=== PATIENT | male | born 1975 | race Caucasian/White ===

== ENCOUNTER 2017-11-19 10:47 | Observation (INO) ==
--- NOTE | 2017-11-19 11:06 | Emergency Department Report ---
Overdose HPI - General Chief Complaint: Overdose Stated Complaint: MEDICATION OVERDOSE Time Seen by Provider: 11/19/17 11:06 Source: patient, EMS Mode of arrival: EMS Limitations: no limitations - History of Present Illness HPI Narrative: Patient is a 42-year-old male presents to the emergency department for possible benzodiazepine overdose. Patient apparently was transferred to [facility] on 11/13/2017 with a history of possible stroke. As far as can be determined for the discharge paperwork stroke was ruled out patient was referred to [facility] for alcohol and methamphetamine abuse. Patient was approximately 12:30 AM discharge from [facility] in [facility] sometime around 8:30 this morning was discharged with 61 mg lorazepam is a ride with 29 1 mg lorazepam's, slurring his speech and somnolent. EMS was called patient was brought to the ER for evaluation on arrival patient states he's been taking it for his anxiety took either 9 or 13 approximately an hour and half prior to EMS being called. MD complaint: accidental overdose - Related Data Home Medications Medication Instructions Recorded Confirmed LORazepam [Lorazepam] 1 mg PO TID PRN 11/19/17 11/19/17 Allergies Allergy/AdvReac Type Severity Reaction Status Date / Time No Known Allergies Allergy Verified 11/19/17 11:05 Review of Systems Constitutional: Denies: fever, chills, weakness Eyes: Denies: eye pain, eye discharge, vision change ENT: Denies: ear pain, throat pain, dental pain Cardiovascular: Denies: chest pain, palpitations, dyspnea on exertion Respiratory: Denies: cough, dyspnea, wheezes Gastrointestinal: Denies: abdominal pain, nausea, vomiting Genitourinary: Denies: dysuria, frequency Integumentary: Denies: alopecia Neurological: Denies: headache Psychiatric: Reports: anxiety, depression Endocrine: Denies: fatigue Hematological/Lymphatic: Denies: easy bleeding Allergic/Immunologic: Denies: facial swelling PFSH Patient Stated Medical History 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 Absent: tenderness - Chest Chest inspection: Present: symmetric chest wall rise. Absent: tenderness - Respiratory Respiratory exam: Present: normal lung sounds bilaterally. Absent: respiratory distress, wheezes, stridor - Cardiovascular Cardiovascular exam: Present: regular rate, normal rhythm, normal heart sounds - Abdominal Exam Abdominal exam: Present: soft, normal bowel sounds. Absent: distention, tenderness - Extremities Exam Extremities exam: Present: full ROM, normal capillary refill. Absent: tenderness - Back Exam Back exam: Present: full ROM. Absent: tenderness, CVA tenderness (R), CVA tenderness (L), muscle spasm, paraspinal tenderness - Skin Skin exam: Present: warm, dry - Neurological Exam Neurological exam: Present: alert, oriented X3 - Psychiatric Psychiatric exam: Present: other (patient is somnolent but arousable and answers questions appropriately) Course Vital Signs Pulse Rate 88 11/19/17 10:52 Respiratory Rate 16 11/19/17 10:52 Blood Pressure 126/72 11/19/17 10:52 Pulse Oximetry 98 11/19/17 10:52 Pulse Rate 68 11/19/17 12:58 Respiratory Rate 23 11/19/17 12:57 Blood Pressure 120/77 11/19/17 12:57 Pulse Oximetry 98 11/19/17 12:45 Overdose - Medical Records Attestation: I reviewed the patient's medical records. - Lab Data Attestation: I reviewed the patient's lab results. Result diagrams: 11/19/17 11:28 11/19/17 11:28 Lab Results 11/19/17 11/19/17 11/19/17 Range/Units 11:25 11:25 11:28 WBC (4.5-11.0) T/MM3 RBC (4.50-5.90) M/MM3 Hgb (13.5-17.5) GM/DL Hct (41-53) % MCV (80-100) UM3 MCH (26-34) UUG MCHC (31-37) GM/DL RDW Std Deviation (36.9-50.2) FL Plt Count (130-400) T/MM3 MPV (9.4-12.4) UM3 Immature Gran % (Auto) (0.0-0.5) % Neut % (Auto) (33-66) % Lymph % (Auto) (23-45) % [place] % (Auto) (0-9.0) % Eos % (Auto) (0-4) % Baso % (Auto) (0-2) % Neut # (Auto) (1.8-7.7) T/MM3 Lymph # (Auto) (1-4.8) T/MM3 [place] # (Auto) (0-0.8) T/MM3 Eos # (Auto) (0-0.5) T/MM3 Baso # (Auto) (0-0.2) T/MM3 Abs Immat Gran (auto) (0.00-0.03) T/MM3 Turbidity (0-20) Sodium (136-146) MEQ/L Potassium (3.6-5) MEQ/L Chloride (98-107) MEQ/L Carbon Dioxide (22-30) MEQ/L Anion Gap (5-15) meq/L BUN (9-20) MG/DL Creatinine (0.8-1.5) mg/dL Estimated Creat Clear (>50) mL/min GFR Calculation (>60) mL/min BUN/Creatinine Ratio (6-26) RATIO Glucose (75-110) MG/DL Calculated Osmolality (261-280) MOSM/KG Calcium (8.4-10.2) MG/DL Total Bilirubin (0.20-1.30) MG/DL Icterus Index (0-7) AST (17-59) U/L ALT (1-50) U/L Alkaline Phosphatase (38-126) U/L Total Protein (6.3-8.2) g/dL Albumin (3.5-5.0) g/dL Globulin (2.4-3.6) G/DL Albumin/Globulin Ratio (1.1-2.2) RATIO Specimen Hemolysis (0-25) Ur Collection Type Urine, void-cc/notcc Urine Color Yellow (YELLOW) Urine Clarity Clear Urine pH 8.0 (5.0-8.0) Ur Specific [place] 1.010 L (1.015-1.025) Urine Protein Negative (NEGATIVE) Urine Glucose (UA) Negative (NEGATIVE) Urine Ketones Negative (NEGATIVE) Urine Occult Blood Negative (NEGATIVE) Urine Nitrate Negative (NEGATIVE) Urine Bilirubin Negative (NEGATIVE) Urine Urobilinogen 0.2 (NORMAL) EU/DL Ur Leukocyte Esterase Negative (NEGATIVE) Urinalysis Comment Microscopic not ind. Salicylates (2-20) MG/DL Urine Opiates Screen Negative (Negative) ng/mL Ur Oxycodone Screen Negative (Negative) ng/mL Urine Methadone Screen Negative (Negative) ng/mL Ur Propoxyphene Screen Negative (Negative) ng/mL Acetaminophen (10-30) ug/mL Ur Barbiturates Screen Negative (Negative) ng/mL U Tricyclic Antidepress Negative (Negative) ng/mL Ur Phencyclidine Scrn Negative (Negative) ng/mL Ur Amphetamines Screen Negative (Negative) ng/mL U Methamphetamines Scrn Negative (Negative) ng/mL U Benzodiazepines Scrn Positive (Negative) ng/mL Urine Cocaine Screen Negative (Negative) ng/mL U Cannabinoids Screen Negative (Negative) ng/mL Ur Drug Screen Confirm Sent out Alcohol, Quantitative (<10) mg/dL 11/19/17 11/19/17 Range/Units 11:28 11:28 WBC 5.0 (4.5-11.0) T/MM3 RBC 4.55 (4.50-5.90) M/MM3 Hgb 13.4 L (13.5-17.5) GM/DL Hct 40.5 L (41-53) % MCV 89.0 (80-100) UM3 MCH 29.5 (26-34) UUG MCHC 33.1 (31-37) GM/DL RDW Std Deviation 57.6 H (36.9-50.2) FL Plt Count 370 (130-400) T/MM3 MPV 8.6 L (9.4-12.4) UM3 Immature Gran % (Auto) 0.2 (0.0-0.5) % Neut % (Auto) 52.5 (33-66) % Lymph % (Auto) 33.5 (23-45) % [place] % (Auto) 13.0 H (0-9.0) % Eos % (Auto) 0.6 (0-4) % Baso % (Auto) 0.2 (0-2) % Neut # (Auto) 2.6 (1.8-7.7) T/MM3 Lymph # (Auto) 1.7 (1-4.8) T/MM3 [place] # (Auto) 0.7 (0-0.8) T/MM3 Eos # (Auto) 0.0 (0-0.5) T/MM3 Baso # (Auto) 0.0 (0-0.2) T/MM3 Abs Immat Gran (auto) 0.01 (0.00-0.03) T/MM3 Turbidity < 20 (0-20) Sodium 142 (136-146) MEQ/L Potassium 4.6 (3.6-5) MEQ/L Chloride 104 (98-107) MEQ/L Carbon Dioxide 28 (22-30) MEQ/L Anion Gap 10 (5-15) meq/L BUN 15.0 (9-20) MG/DL Creatinine 0.7 L (0.8-1.5) mg/dL Estimated Creat Clear 132 (>50) mL/min GFR Calculation 125 (>60) mL/min BUN/Creatinine Ratio 21 (6-26) RATIO Glucose 95 (75-110) MG/DL Calculated Osmolality 274 (261-280) MOSM/KG Calcium 9.6 (8.4-10.2) MG/DL Total Bilirubin 0.30 (0.20-1.30) MG/DL Icterus Index < 2 (0-7) AST 34 (17-59) U/L ALT 50 (1-50) U/L Alkaline Phosphatase 47 (38-126) U/L Total Protein 7.5 (6.3-8.2) g/dL Albumin 4.6 (3.5-5.0) g/dL Globulin 2.9 (2.4-3.6) G/DL Albumin/Globulin Ratio 1.6 (1.1-2.2) RATIO Specimen Hemolysis < 15 (0-25) Ur Collection Type Urine Color (YELLOW) Urine Clarity Urine pH (5.0-8.0) Ur Specific [place] (1.015-1.025) Urine Protein (NEGATIVE) Urine Glucose (UA) (NEGATIVE) Urine Ketones (NEGATIVE) Urine Occult Blood (NEGATIVE) Urine Nitrate (NEGATIVE) Urine Bilirubin (NEGATIVE) Urine Urobilinogen (NORMAL) EU/DL Ur Leukocyte Esterase (NEGATIVE) Urinalysis Comment Salicylates < 1.0 L (2-20) MG/DL Urine Opiates Screen (Negative) ng/mL Ur Oxycodone Screen (Negative) ng/mL Urine Methadone Screen (Negative) ng/mL Ur Propoxyphene Screen (Negative) ng/mL Acetaminophen < 10 L (10-30) ug/mL Ur Barbiturates Screen (Negative) ng/mL U Tricyclic Antidepress (Negative) ng/mL Ur Phencyclidine Scrn (Negative) ng/mL Ur Amphetamines Screen (Negative) ng/mL U Methamphetamines Scrn (Negative) ng/mL U Benzodiazepines Scrn (Negative) ng/mL Urine Cocaine Screen (Negative) ng/mL U Cannabinoids Screen (Negative) ng/mL Ur Drug Screen Confirm Alcohol, Quantitative <10 (<10) mg/dL - Radiology Data Attestation: I reviewed the patient's radiology results. Chest x-ray: No acute cardiopulmonary findings - EKG Data EKG #1 EKG attestation: Yes: I reviewed and interpreted this EKG. EKG shows normal: sinus rhythm Rate: normal Rhythm: NSR [place]/QRS: normal Interpretation: no acute changes Disposition Clinical Impression: Benzodiazepine overdose Qualifiers: Encounter type: initial encounter Injury intent: accidental or unintentional Qualified Code(s): T42.4X1A - Poisoning by benzodiazepines, accidental ( unintentional), initial encounter Disposition: 02 To [facility] Time of Disposition: 13:05 - Seen By: physician
[2017-11-19] MEDS ORDERED: NS 1,000 ML IV ONE (11:12)
[2017-11-19] MEDS ORDERED: SALINE FLUSH 10ml SYRINGE IVF PRN (11:12)
--- NOTE | 2017-11-19 11:50 | XRay Report ---
Indication: overdose PROCEDURE: XR chest 1V: Encounter: Initial Comparison: None FINDINGS: The lungs are clear. There is no abnormal airspace opacity, pleural effusion or pneumothorax identified. The heart size, pulmonary vasculature and mediastinum are within normal limits. No significant skeletal abnormality is seen. IMPRESSION: No acute cardiopulmonary abnormality. .
--- OUTSIDE RECORDS SUMMARY | 2017-11-19 12:55 | External Medical Summary ---
:1975 Author Organization [facility] Address [address] [place], [place] [id number] Care Team Providers Name Role Phone Zoran Darnell Primary Care Physician Unavailable Allergies and Adverse Reactions Name Reaction Notes No known drug allergy Plan of Treatment Planned Activity Comments Planned Date Planned Time Plan/Goal SHOULDER MINIMUM 2 VIEWS 06/02/2017 12:00 AM right shoulder pain with flexion and internal rotation Medications Active Name Start Date Estimated Completion SIG Comments Date diclofenac potassium 50 06/02/2017 take 1 tablet (50 mg oral tablet mg) by oral route 2 times per day for 14 days Problem List Not available. 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 Results Summary Not available. History Of Immunizations Not available. History of Past Illness Name Date of Onset Comments Fractures of multiple bones of lower extremity Right shoulder pain Jun 02 2017 1:06PM Payers Insurance Company Name Plan Name Plan Policy Number Policy Start Name Number Group Date Number [facility] [id number] N/A HealthCare - RHC Comm C - [facility] Plan of [place] History of Encounters Visit Date Visit Type Provider 06/02/2017 Office visit Zoran Darnell NP
--- OUTSIDE RECORDS SUMMARY | 2017-11-19 12:55 | External Medical Summary ---
:1975 Author Organization [facility] Address [address] [place], [place] [id number] Care Team Providers Name Role Phone Zoran Darnell Primary Care Physician Unavailable Allergies and Adverse Reactions Name Reaction Notes No known drug allergy Plan of Treatment Planned Activity Comments Planned Date Planned Time Plan/Goal CHLAMYDIA TRACHOMATIS AMP PROBE 10/13/2017 12:00 AM NEISSERIA GONORRHOEAE AMP PROBE 10/13/2017 12:00 AM TRICHOMONAS AMPLIFIED 10/13/2017 12:00 AM TRICHOMONAS AMPLIFIED 10/13/2017 12:00 AM right shoulder pain with flexion and 06/15/2017 10:00 AM internal rotation Medications Name Start Date Expiration Date SIG Comments diclofenac potassium 50 mg 06/02/2017 take 1 tablet (50 mg) oral tablet by oral route 2 times per day for 14 days Sklice 0.5 % topical 06/08/2017 apply to affected area lotion by topical route once Problem List Not available. 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 History Of Immunizations Not available. History of Past Illness Name Date of Onset Comments Fractures of multiple bones of lower extremity Right shoulder pain Jun 02 2017 1:06PM High risk sexual behavior Oct 13 2017 9:36AM Payers Insurance Company Name Plan Name Plan Policy Number Policy Start Name Number Group Date Number [facility] [id number] N/A HealthCare - RHC Comm [employer] - [employer] Plan of [place] History of Encounters Visit Date Visit Type Provider 10/13/2017 Office visit Zoran Darnell NP 06/02/2017 Office visit Zoran Darnell NP
--- OUTSIDE RECORDS SUMMARY | 2017-11-19 12:55 | External Medical Summary ---
:1975 Author Organization [facility] Address [address] [place], [place] [id number] Care Team Providers Name Role Phone Zoran Darnell Primary Care Physician Unavailable Allergies and Adverse Reactions Name Reaction Notes No known drug allergy Plan of Treatment Planned Activity Comments Planned Date Planned Time Plan/Goal right shoulder pain with flexion and 06/15/2017 10:00 AM internal rotation Medications Active Name Start Date Estimated Completion SIG Comments Date diclofenac potassium 50 06/02/2017 take 1 tablet (50 mg oral tablet mg) by oral route 2 times per day for 14 days Sklice 0.5 % topical 06/08/2017 apply to affected lotion area by topical route once Problem List Not [...] (former) 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
--- OUTSIDE RECORDS SUMMARY | 2017-11-19 12:55 | External Medical Summary | Continuity of Care Document ---
:1975 Author Organization [facility] Allergies Active Description Code Type Severity Reaction Onset Reported/ Identified Relationship Clinical to Patient Status Yes NKDA N/A N/A Yes No Known No Drug Unknown NONE 05/26/2010 Drug Known Aller Allergies Drug gy Aller gies Yes NKDA N/A N/A 03/21/2016 Yes No Known NKMA N/A N/A 07/10/2016 Allergies Medications Medication Packaging Start Date Stop Route Dosage Sig Date ORAL 03/12/2016 04/21/19 TRAMADOL HCL 17 MOBIC ORAL 03/12/2016 04/11/19 17 [facility] MOBIC ORAL 03/21/2016 04/20/19 30 17 daily ORAL 04/11/2016 04/21/19 TRAMADOL HCL 17 1,000 mL 07/10/2016 07/11/19 IV 10 Lactated Ringers 17 mL/hr, IV Injection(Lactate d Ringers Injection 1,000 mL) 2 mL 07/10/2016 07/11/19 IV Push 2 mg 2 midazolam(Versed) 17 mg=2 mL, IV Push, q20min, PRN: Sedation 2 mL 07/10/2016 07/11/19 IV Push 100 mcg 100 fentaNYL(Sublimaz 17 mcg=2 mL, IV e) Push, q20min, PRN: Pain 1 mL 07/10/2016 07/11/19 IV Push 10 mg 10 dexamethasone(dex 17 mg=1 mL, IV amethasone) Push, Once 2 caps 07/10/2016 07/11/19 Oral 600 mg 600 gabapentin(gabape 17 mg=2 caps, Oral, ntin) Once 3 tabs 07/10/2016 07/11/19 Oral 975 mg 975 acetaminophen(randy 17 mg=3 tabs, Oral, taminophen) Once 2 mL 07/10/2016 07/12/19 IV Push 10 mg 10 metoclopramide(Re 17 mg=2 mL, IV glan) Push, q6hr, PRN: Nausea 1 caps 07/10/2016 07/12/19 Oral 100 mg 100 docusate(Colace) 17 mg=1 caps, Oral, BID 2 mL 07/10/2016 07/12/19 IV Push 4 mg 4 ondansetron(Zofra 17 mg=2 mL, IV n) Push, q6hr, PRN: Nausea Al 30 mL 07/10/2016 07/12/19 Oral 30 hydroxide/Mg 17 mL, Oral, q6hr, hydroxide/simethi PRN: cone(Maalox GERD/Heartburn Advanced Maximum Strength oral suspension) 1.5 mL 07/10/2016 07/12/19 IV Push 3 mg 3 HYDROmorphone(HYD 17 mg=1.5 mL, IV ROmorphone) Push, q4hr, PRN: Pain Severe (7-10) 10 mL 07/10/2016 07/12/19 IV Push 1 g 1 ceFAZolin(ceFAZol 17 g=10 mL, IV in) Push, q8hr 07/10/2016 07/12/19 Oral 1--2 oxycodone-acetami 17 tabs, Oral, nophen(Percocet q4hr, PRN: Pain 5/325 oral tablet Moderate (4-6) range dose) 1 caps 07/10/2016 07/12/19 Oral 100 mg 100 docusate(Colace) 17 mg=1 caps, Oral, BID Al 30 mL 07/10/2016 07/12/19 Oral 30 hydroxide/Mg 17 mL, Oral, q6hr, hydroxide/simethi PRN: cone(Maalox Dyspepsia/Indige Advanced Maximum stion Strength oral suspension) 1 packets 07/10/2016 07/12/19 Oral 17 g 17 polyethylene 17 g=1 packets, glycol Oral, BID 3350(MiraLax) 1,000 mL 07/10/2016 07/12/19 IV 80 Sodium Chloride 17 mL/hr, IV 0.9%(Sodium Chloride 0.9% 1,000 mL) 1 supp 07/10/2016 07/12/19 Rectal 10 mg 10 bisacodyl(bisacod 17 mg=1 supp, yl) Rectal, Daily, PRN: Constipation 07/10/2016 Oral 1 - oxycodone-acetami 2 tabs, Oral, nophen(Percocet q4hr, PRN: Pain 5/325 oral Moderate (4-6), tablet) 0 Refill(s) 2 tabs 07/11/2016 07/12/19 Oral 2 oxycodone-acetami 17 tabs, Oral, nophen(oxyCODONE- q4hr, PRN: Pain acetaminophen 10 Moderate (4-6) mg-325 mg oral tablet range dose) VL 11/13/2017 11/14/19 IM 1 GM X1& MAGNESIUM SULF 18 1GM/2ML VIAL VIAL 11/13/2017 11/14/19 IVP 1 MG X1& LORAZEPAM 2MG/ML 18 VIAL Problems Date Dx Attending Type Code Diagnosis Diagnosed By Coded 10/27/2015 Sekou Daly MD E83.42 HYPOMAGNESEMIA R4 10/27/2015 Sekou Daly MD M25.572 PAIN IN LEFT ANKLE R4 AND JOINTS OF LEFT FOOT 10/27/2015 Sekou Daly MD R41.82 ALTERED MENTAL R4 STATUS, UNSPECIFIED 10/27/2015 Sekou Daly MD T40.601A POISONING BY UNSP R4 NARCOTICS, ACCIDENTAL, INIT 10/27/2015 Sekou Daly MD T45.0X1A POISONING BY R4 ANTIALLERG/ANTIEMETI C, ACCIDENTAL, IN 07/15/2016 Christine Shawn Final F17.220 Nicotine dependence, chewing tobacco, uncomplicated 07/15/2016 Christine Shawn Reason 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 Results Test Result Range CBC With Platelet and Differential - 07/11/16 06:35 Absolute Basophils 0.01 10*3/uL 0.00-0.20 Absolute Eosinophils 0.03 10*3/uL 0.00-0.50 Absolute Lymphocytes 2.24 10*3/uL 0.80-3.30 Absolute Monocytes 0.98 10*3/uL 0.30-1.00 Absolute Neutrophils 7.88 10*3/uL 1.90-7.00 Basophils 0 % 0-2 Eosinophils 0 % 0-4 HCT 39.0 % 42.0-52.0 HGB 12.5 g/dL 14.0-18.0 Immature Granulocytes 0.3 % 0.0-1.0 Lymphocytes 20 % 20-46 MCH 29.1 pg 27.0-32.0 MCHC 32.1 g/dL 32.0-36.0 MCV 90.9 fL 82.0-99.0 Monocytes 9 % 4-11 MPV 9.0 fL 9.4-12.3 Neutrophils 70 % 51-75 Nucleated RBC Automated 0.0 /100 WBC Platelet Count 355 K/uL 150-400 RBC 4.29 10*6/uL 4.60-6.20 RDW 14.6 % 11.5-14.5 WBC 11.2 K/uL 4.8-10.8 Basic Metabolic Panel (BMP) - 07/11/16 06:35 Anion Gap 9 NA 3-20 BUN 11 mg/dL 4-20 Calcium 8.7 mg/dL 8.6-10.0 Chloride 103 mEq/L 99-109 CO2 27 mEq/L 22-32 Creatinine 0.84 mg/dL 0.64-1.27 Glucose 99 mg/dL 70-100 Potassium 5.0 mEq/L 3.6-5.1 Sodium 139 mEq/L 136-144 eGFR - 07/11/16 06:35 eGFR >60 NA >60 CBC W Auto Diff Bld - 11/13/17 04:20 WBC 9.7 K/ul 4.5 - 11.0 RBC 4.86 M/ul 4.40 - 5.60 HGB 14.2 G/dl 13.0 - 17.0 HCT 40.6 % 38.0 - 50.0 MCV 84 fl 80 - 100 MCH 29.2 pg 28.0 - 32.0 MCHC 34.9 G/dl 32.0 - 36.7 RDW 19.0 % 11.5 - 15.5 PLATELETS 176 K/ul 120 - 390 MPV 7.8 fl 5.4 - 12.6 NEUTROPHIL% 64.2 % 43.5 - 76.5 LYMPHOCYTE% 24.6 % 13.5 - 44.5 MONOCYTE% 8.3 % 2.0 - 12.0 EOSINOPHIL% 2.5 % 0.0 - 5.0 BASOPHIL% 0.4 % 0.0 - 2.0 NEUTROPHIL# 6.2 K/ul 1.7 - 7.4 LYMPHOCYTE# 2.4 K/ul 0.9 - 3.3 MONOCYTE# 0.8 K/ul 0.1 - 0.8 EOSINOPHIL# 0.2 K/ul 0.0 - 0.5 BASOPHIL# 0.0 K/ul 0.0 - 0.1 MANUAL DIFF NOT INDICATED NRG Lactate SerPl-sCnc - 11/13/17 04:20 LACTIC ACID PLASMA 0.9 MMOL/L 0.5 - 2.2 PT Pnl PPP - 11/13/17 04:20 PROTIME 11.9 sec 9.5 - 12.1 INR 1.09 0.00 - 3.90 Comp Metab 2000 Pnl SerPl - 11/13/17 04:20 GLUCOSE 103 mg/dl 74 - 118 BUN 23.0 mg/dl 8.0 - 26.0 SODIUM 130 mmol/L 136 - 144 POTASSIUM 2.6 mmol/L 3.6 - 5.1 CHLORIDE 90 mmol/L 101 - 111 CO2 28 mmol/L 22 - 32 CREATININE 0.75 mg/dl 0.61 - 1.24 TOTAL PROTEIN 7.4 G/DL 6.5 - 8.1 ALBUMIN 4.0 G/dl 3.5 - 4.8 ALKALINE PHOS 58 IU/L 38 - 126 AST 51 IU/L 15 - 41 TOTAL BILI 1.0 mg/dl 0.4 - 1.5 CALCIUM 8.9 mg/dl 8.4 - 10.0 ALT 42 IU/L 17 - 63 AGE 42 yrs NRG GFR 115 NRG eGFR >90 NRG CALLED TO: Arielle DOW PA @ 1371 NR [facility] - 11/13/17 04:20 MAGNESIUM 1.9 MG/DL 1.8 - 2.5 CARDIAC PROFILE - 11/13/17 04:20 CK 192 IU/L 38 - 174 CKMB 1.4 NG/ML 0.6 - 6.3 CKMB INDEX 0.7 IU/L 0.0 - 2.0 TROPONIN I <0.01 NG/ML 0.00 - 0.50 UA dipstick W Reflex Micro pnl Ur - 11/13/17 06:20 GLUCOSE Negative Negative Color Yellow Yellow - Aishwarya Appearance Clear Clear Protein Negative Negative Bilirubin Negative Negative Urobilinogen Negative 0.2 - 1.0 mg/dl pH 7.0 5.0 - 9.0 Blood Negative Negative Ketone Negative Negative Nitrites Negative Negative Leukocytes Negative Negative Spec Grav 1.051 1.005 - 1.030 RBC's 0-3 NRG WBC's 0-2 NRG Epith Squam [none] NRG Epith Transit [none] NRG Epith Renal [none] NRG Bacteria [none] NRG HYALINE [none] NRG CELLULAR [none] NRG GRANULAR [none] NRG WAXY [none] NRG CALCIUM OXALATE [none] NRG AMORPHOUS [none] NRG TRIPLE PHOSPHATE [none] NRG URIC ACID(C) [none] NRG Trich. vaginalis [none] NRG SPERM [none] NRG Mucous [none] NRG YEAST [none] NRG DRUG SCREEN-INHOUSE2 - 11/13/17 06:20 DRUG SCREEN-INHOUSE2 LAB NRG BARBITUATES (BETHEL) NEG NORMAL: NEGATIVE BENZODIAZEPINE(BNZG) NEG NORMAL: NEGATIVE AMPHETAMINES (AMPH) NEG NORMAL: NEGATIVE COCAINE (COCM) NEG NORMAL: NEGATIVE THC (THC5) NEG NORMAL: NEGATIVE PHENCYCLIDINE(PCP) NEG NORMAL: NEGATIVE OPIATES(OP) NEG NORMAL: NEGATIVE METHADONE(METD) NEG NORMAL: NEGATIVE OXYCODONE(OXYX) NEG NORMAL: NEGATIVE TRICYCLICS(STCX) NEG NORMAL: NEGATIVE MDMA(XTCX) NEG NORMAL: NEGATIVE ALCOHOL (ETHANOL) SERUM - 11/13/17 10:33 ALCOHOL (ETHANOL) SERUM < 3 mg/dL < 10 TROPONIN I - 11/13/17 10:33 TROPONIN I < 0.02 ng/mL < 0.07 CBC W/DIFF - 11/14/17 04:35 BASOPHIL # 0.0 k/cumm 0.0-0.2 BASOPHIL % 0.2 % 0-1 EOSINOPHIL # 0.2 k/cumm 0.1-0.5 EOSINOPHIL % 2.8 % 2-4 GRANULOCYTE # 3.0 k/cumm 2.0-9.0 GRANULOCYTE % 55.4 % 50-75 LYMPHOCYTE # 1.8 k/cumm 1.0-4.0 LYMPHOCYTE % 32.7 % 20-30 MEAN CELL HGB 28.7 pg 27.0-33.0 MEAN CELL HGB CONCENTRATION 33.2 g/dL 32.0-37.0 MEAN CELL VOLUME 86.6 fl 80.0-100.0 MONOCYTE # 0.5 k/cumm 0.1-1.0 MONOCYTE % 8.7 % 4-6 MEAN PLATELET VOLUME 9.4 fl 8.5-10.9 RED BLOOD CELL 4.39 m/cumm 4.00-6.00 RED CELL DISTRIBUTION WIDTH 16.6 % 11.0-15.6 WHITE BLOOD CELL 5.4 k/cumm 5.0-10.0 HEMOGLOBIN 12.6 gm/dL 14.0-18.0 HEMATOCRIT 38.0 % 40.0-54.0 NRBC % 0.0 /100 WBC 0.0-0.0 PLATELET COUNT 163 k/cumm 150-400 IMMATURE GRANULOCYTE % 0.2 % 0.0-0.6 IMMATURE GRANULOCYTE # 0.01 k/cumm 0.00-0.09 METABOLIC PANEL, BASIC - 11/14/17 04:35 POTASSIUM 3.4 mmol/L 3.5-5.3 EST GFR (MDRD) > 60 mL/min > 59 ANION GAP 7 mmol/L 5-15 EST CrCl (CG) > 60 mL/min > 59 GLUCOSE 88 mg/dL 70-99 CALCIUM 8.4 mg/dL 8.5-10.1 BLOOD UREA NITROGEN 14 mg/dL 7-20 CREATININE 0.7 mg/dL 0.7-1.3 SODIUM 142 mmol/L 135-148 CHLORIDE 107 mmol/L 98-110 CARBON DIOXIDE 28 mmol/L 21-32 LIPID PANEL - 11/14/17 04:35 CHOLESTEROL/HDL RATIO 2.0 < 5.0 LDL CHOLESTEROL 37 mg/dL < 100 VLDL CHOLESTEROL 17 mg/dL < 30 TRIGLYCERIDES 83 mg/dL < 150 CHOLESTEROL 107 mg/dL < 200 HDL CHOLESTEROL 53 mg/dL > 39 AST/SGOT - 11/14/17 04:35 AST/SGOT 47 Units/L 10-37 ALT/SGPT - 11/14/17 04:35 ALT/SGPT 44 Units/L < 66 MAGNESIUM - 11/14/17 04:35 MAGNESIUM 2.2 mg/dL 1.8-2.4 TROPONIN I - 11/14/17 04:35 TROPONIN I < 0.02 ng/mL < 0.07 Encounters ACCT No. Visit Discharge Status Pt. Type Provider Facility Loc./Unit Complaint Date/Time [id number] 06/07/2015 ACT Unknown 12:01:31 [id number] 11/13/2017 Document 06:21:47 Registrat ion [id number] 07/10/2016 Document [id number] 08:57:00 Registrat ion [id number] 11/13/2017 Document 04:00:00 Registrat ion [id number] 10/27/2015 10/27/2015 DIS Inpatient Addy CURTIS[facility] 04:45:00 13:47:00 Sekou Pierre [address] & ER [id number] 07/10/2016 07/11/2016 DIS Outpatien Christine,, Via [facility] F6SE Left ankle 709 08:57:00 12:16:00 t Angel [facility] traumatic on [facility] arthropathy Bassem [id number] 07/12/2016 Document [id number] 05:16:00 Registrat ion [id number] 07/11/2016 Document [id number] 05:16:39 Registrat ion [id number] 06/20/2010 06/20/2010 CLS Outpatien 543 11:04:00 23:59:59 t [id number] 11/13/2017 Document 282 08:38:00 Registrat ion [id number] 10/13/2017 10/13/2017 CLS Outpatien Mann, 10:28:36 23:59:59 t Zoran [id number] 06/02/2017 06/02/2017 CLS Outpatien Mann, 14:23:38 23:59:59 t Zoran [id number] 04/11/2016 04/11/2016 DIS Outpatien 11:38:16 11:38:17 t [id number] 03/22/2016 Document 06:28:09 Registrat ion
[2017-11-19] MEDS: NICOTINE PATCH REMOVAL TD SCH (13:00)
[2017-11-19 13:46] VITALS: BMI 22.3
[2017-11-19] MEDS ORDERED: ONDANSETRON 4 MG/2 ML INJECTION IVP PRN (13:59)
[2017-11-19] MEDS ORDERED: MORPHINE SULFATE 4mg INJECTION IVP PRN (14:00)
[2017-11-19] MEDS ORDERED: ACETAMINOPHEN 325 MG TABLET PO PRN (14:00)
[2017-11-19] MEDS ORDERED: HALOPERIDOL 5 MG/ML INJECTION IVP PRN (14:09)
[2017-11-19] MEDS: NS 1,000 ML IV SCH ×2 (14:15→16:40)
[2017-11-19] MEDS: NICOTINE 14 MG PATCH TD SCH (14:20)
--- NOTE | 2017-11-19 14:26 | History & Physical Report ---
History of Present Illness Date: 11/19/17 Chief complaint: altered mental status HPI: A 42-year-old male patient brought to the emergency room with concern for benzodiazepine overdose. Patient was recently admitted at [facility] where he was transferred from [place] with concern for possible stroke. Patient was discharged to [facility]. Patient was discharged with 60 pills of 1 mg oral lorazepam medication and at the time of arrival to emergency room at [facility], patient had 29 tablets left in the pillbox and appeared drowsy with slurred speech. With these findings, hospitalist service was consulted and patient admitted for observation to ICU with overdose on Ativan medication. Patient evaluated at bedside following admission to ICU. Reports that he took 610 tablets of Ativan earlier this morning. Patient also reports taking unknown quantity of Ativan medication last evening. No reported chest pain, no palpitations, no dizziness, no blurred vision. Reports feeling anxious, states that he has a history of alcohol use, consumes 1-1/2 gallons of whiskey every 2 days, last reported drink was 1 month ago. No reported blurred vision, no reported auditory or visual hallucinations. Some records available from [facility] from recent hospitalization on 11/13/2017. Patient had CT of the head with did not show any acute changes. MRI showed changes concerning for Wernicke's encephalopathy otherwise unremarkable. Review of Systems Review of systems: Positive slurred speech, positive confusion, positive increased drowsiness. 10 point review of systems completed, negative except for as mentioned above. Past Medical History Medical History Updates: Alcohol dependence with history of alcohol withdrawal delirium. Nicotine dependence Surgical History: Bilateral ankle fracture surgery Family History: Asians mother had diabetes mellitus and pancreatic cancer. Patient's father had a history of CVA. No reported family history of coronary artery disease. (As per the records available from [facility]). Family History: As Above - Social History Smoking status: Current every day smoker (patient smokes 1 pack per day of tobacco) Packs per day: 1 Time spent discussing smoking cessation with patient: 3 to 10 minutes Substance use type: IV drugs, methamphetamine Substance last used: unknown Alcohol intake: current Alcohol intake frequency: 3 or more drinks per day (1-1/2 gallon of whiskey every 2 days, last drink one month ago) Last drink: unknown (one month ago) Medications Home Medications Medication Instructions Recorded Confirmed Type LORazepam [Lorazepam] 1 mg PO TID PRN 11/19/17 11/19/17 History Allergies Allergy/AdvReac Type Severity Reaction Status Date / Time No Known Allergies Allergy Verified 11/19/17 11:05 Exam Vital Signs: Temperature 97.8 F 11/19/17 13:00 Pulse Rate 78 11/19/17 14:00 Respiratory Rate 27 H 11/19/17 14:00 Blood Pressure 117/71 11/19/17 13:45 Pulse Oximetry 99 11/19/17 14:00 Height/Weight/BMI: Height 1.7 m Weight 64.7 kg Body Mass Index 22.3 - Additional findings Additional findings: General: Drowsy, arousable, oriented to self, place and person, time. Not in acute distress. Head: Pupils equal, round, reactive to light and accommodation. Extraocular movements intact. Neck: No elevation in JVP. No pharyngeal erythema noted. Chest: The patient does not use accessory muscles for breathing. Lungs: Breath sounds audible on auscultation bilateral lung long. No wheezing , no rhonchi, no crepitations, no crackles. No pleural rub. CVS: S1, S2 heard on auscultation. Normal rate and rhythm. No murmur, no S3/S4 gallops. Abdomen: Soft, nontender, no distention. Bowel sounds appreciated on auscultation. Skin: No rashes, no induration, no erythema. Capillary refill less than 4 seconds. Extremities: No evidence of pedal edema bilateral lower extremities. No calf tenderness bilaterally. Palpable dorsalis pedis and posterior tibial pulses bilateral lower extremities. Results - Labs CBC & Chem 7: 11/19/17 11:28 11/19/17 11:28 Labs: Laboratory Tests 11/19/17 11/19/17 11/19/17 11:25 11:25 11:28 Salicylates < 1.0 L Urine Opiates Screen Negative Ur Oxycodone Screen Negative Urine Methadone Screen Negative Ur Propoxyphene Screen Negative Acetaminophen < 10 L Ur Barbiturates Screen Negative U Tricyclic Antidepress Negative Ur Phencyclidine Scrn Negative Ur Amphetamines Screen Negative U Methamphetamines Scrn Negative U Benzodiazepines Scrn Positive Urine Cocaine Screen Negative U Cannabinoids Screen Negative Ur Drug Screen Info Pending Alcohol, Quantitative <10 Assessment and Plan Assessment and Plan: Assessment: Benzodiazepine overdose Alcohol dependence with history of delirium Nicotine dependence History of IV methamphetamine use Plan: Patient admitted to ICU for observation. IV fluids normal saline at 100 mL per hour. Protonix 40 mg by mouth daily. We'll avoid benzodiazepine medication. IV Haldol 1 mg every 3 hours as needed for agitation or restlessness. Seroquel 50 mg by mouth at bedtime as needed for insomnia. IV morphine 2 mg every 34 hours as needed for pain. IV Zofran 4 mg every 6 hours as needed for nausea. Nicotine patch 14 mg to be applied and changed every day. Tylenol 650 mg by mouth every 5 hours as needed for mild pain or fever. Patient placed on clear liquid diet, will advance diet to regular as tolerated. Patient will be under fall precautions, seizure precautions. Telemetry placed for continuous cardiac monitoring. CBC, BMP ordered for tomorrow. DVT Prophylaxis: SCD's GI Prophylaxis: Protonix Resuscitation Status: Full Code - Physician Narrative Physician: Erin Huff MD Narrative: Date: 11/19/17 Time: 1412 Hospital Course Summary Disclaimer: The visit summary below is not to be considered part of the above Progress Note.
[2017-11-19 20:18] VITALS: O2SAT 98
[2017-11-19] MEDS ORDERED: QUETIAPINE 50 MG TABLET PO SCH (21:00)
[2017-11-20] MEDS: NS 1,000 ML IV SCH (02:45)
[2017-11-20] MEDS ORDERED: PANTOPRAZOLE 40 MG TABLET PO SCH (06:30)
[2017-11-20 07:17] VITALS: BP 116/80; TEMP 97.6
[2017-11-20] MEDS: NICOTINE PATCH REMOVAL TD SCH (08:30)
[2017-11-20] MEDS: NICOTINE 14 MG PATCH TD SCH (08:38)
--- NOTE | 2017-11-20 10:23 | Discharge Summary ---
Discharge Information Date of admission: 11/19/17 12:20 Anticipated date of discharge: 11/20/17 Attending Physician: Erin Huff MD Primary care physician: [facility] Consults: 11/19/17 13:57 Case Management Consult [CONS] Routine Reason For Exam: - Discharge Diagnosis (1) Benzodiazepine overdose Status: Resolved Alcohol dependence with history of delirium Nicotine dependence History of IV methamphetamine use - Laboratory Labs: 11/20/17 04:00 11/20/17 04:00 Laboratory Tests 11/19/17 11/19/17 11/19/17 11:25 11:25 11:28 Ur Collection Type Urine, void-cc/notcc Urine Color Yellow Urine Clarity Clear Urine pH 8.0 Ur Specific [place] 1.010 L Urine Protein Negative Urine Glucose (UA) Negative Urine Ketones Negative Urine Occult Blood Negative Urine Nitrate Negative Urine Bilirubin Negative Urine Urobilinogen 0.2 Ur Leukocyte Esterase Negative Urinalysis Comment Microscopic not ind. Salicylates Urine Opiates Screen Negative Ur Oxycodone Screen Negative Urine Methadone Screen Negative Ur Propoxyphene Screen Negative Acetaminophen Ur Barbiturates Screen Negative U Tricyclic Antidepress Negative Ur Phencyclidine Scrn Negative Ur Amphetamines Screen Negative U Methamphetamines Scrn Negative U Benzodiazepines Scrn Positive Urine Cocaine Screen Negative U Cannabinoids Screen Negative Ur Drug Screen Confirm Sent out Ur Drug Screen Info Pending Alcohol, Quantitative 11/19/17 11:28 Ur Collection Type Urine Color Urine Clarity Urine pH Ur Specific [place] Urine Protein Urine Glucose (UA) Urine Ketones Urine Occult Blood Urine Nitrate Urine Bilirubin Urine Urobilinogen Ur Leukocyte Esterase Urinalysis Comment Salicylates < 1.0 L Urine Opiates Screen Ur Oxycodone Screen Urine Methadone Screen Ur Propoxyphene Screen Acetaminophen < 10 L Ur Barbiturates Screen U Tricyclic Antidepress Ur Phencyclidine Scrn Ur Amphetamines Screen U Methamphetamines Scrn U Benzodiazepines Scrn Urine Cocaine Screen U Cannabinoids Screen Ur Drug Screen Confirm Ur Drug Screen Info Alcohol, Quantitative <10 - Radiology Radiology: 1 view chest x-ray performed on 11/19/2017 IMPRESSION: No acute cardiopulmonary abnormality. History of Present Illness HPI: A 42-year-old male patient brought to the emergency room with concern for benzodiazepine overdose. Patient was recently admitted at [facility] where he was transferred from [place] with concern for possible stroke. Patient was discharged to [facility]. Patient was discharged with 60 pills of 1 mg oral lorazepam medication and at the time of arrival to emergency room at [facility], patient had 29 tablets left in the pillbox and appeared drowsy with slurred speech. With these findings, hospitalist service was consulted and patient admitted for observation to ICU with overdose on Ativan medication. Patient evaluated at bedside following admission to ICU. Reports that he took 610 tablets of Ativan earlier this morning. Patient also reports taking unknown quantity of Ativan medication last evening. No reported chest pain, no palpitations, no dizziness, no blurred vision. Reports feeling anxious, states that he has a history of alcohol use, consumes 1-1/2 gallons of whiskey every 2 days, last reported drink was 1 month ago. No reported blurred vision, no reported auditory or visual hallucinations. Some records available from [facility] from recent hospitalization on 11/13/2017. Patient had CT of the head with did not show any acute changes. MRI showed changes concerning for Wernicke's encephalopathy otherwise unremarkable. Objective Vital signs: Temperature 97.6 F 11/20/17 07:04 Pulse Rate 81 11/20/17 07:04 Respiratory Rate 20 11/20/17 07:04 Blood Pressure 116/80 11/20/17 07:04 Pulse Oximetry 98 11/20/17 07:04 Height/Weight/BMI: Height 1.7 m Weight 65.5 kg Body Mass Index 22.3 - Routine Psychiatric Exam Absent: suicidal ideation, homicidal ideation - Additional findings Additional findings: General: Alert, awake, oriented x3. Not in acute distress. Head: Pupils equal, round, reactive to light and accommodation. Extraocular movements intact. Neck: No elevation in JVP. No pharyngeal erythema noted. Chest: The patient does not use accessory muscles for breathing. Lungs: Breath sounds audible on auscultation bilateral lung long. No wheezing , no rhonchi, no crepitations, no crackles. No pleural rub. CVS: S1, S2 heard on auscultation. Normal rate and rhythm. No murmur, no S3/S4 gallops. Abdomen: Soft, nontender, no distention. Bowel sounds appreciated on auscultation. Skin: No rashes, no induration, no erythema. Capillary refill less than 4 seconds. Extremities: No evidence of pedal edema bilateral lower extremities. No calf tenderness bilaterally. Palpable dorsalis pedis and posterior tibial pulses bilateral lower extremities. [facility]: No tremors noted bilateral upper extremities. Patient answers questions appropriately. No discernible focal neurological deficit. Hospital Course This is a general summary of the patient's hospital course. For more details refer to the complete medical record. Hospital course: 11/19/2017 Patient admitted to ICU for observation. IV fluids normal saline at 100 mL per hour. Protonix 40 mg by mouth daily. We'll avoid benzodiazepine medication. IV Haldol 1 mg every 3 hours as needed for agitation or restlessness. Seroquel 50 mg by mouth at bedtime as needed for insomnia. IV morphine 2 mg every 34 hours as needed for pain. IV Zofran 4 mg every 6 hours as needed for nausea. Nicotine patch 14 mg to be applied and changed every day. Tylenol 650 mg by mouth every 5 hours as needed for mild pain or fever. Patient placed on clear liquid diet, will advance diet to regular as tolerated. Patient will be under fall precautions, seizure precautions. Telemetry placed for continuous cardiac monitoring. 11/20/2017 - discharge Patient resting in bed at the time of interview. Does not appear in any distress. Apart from frequent requests for going outside to smoke cigarettes, no other complaints overnight. No reported chest pain, no palpitations, no shortness of breath, no auditory or visual hallucinations verbalized. No headache, no blurred vision, no subjective fever, no flank pain, no dysuria. Patient advised not to take more than prescribed doses of benzodiazepine medication, verbalized understanding. Patient would benefit from having lorazepam medication given to him as prescribed by rehabilitation Center. Case discussed with case manager specialist who is assisting patient in arranging for a ride back to [facility] facility. Resuscitation Status: Full Code Discharge Plan - Discharge Disposition Discharge Date: 11/20/17 Disposition: 01 Discharged Home, Self-Care *Condition: Stable Reason For Visit (Visit label in EMR): Benzodiazepine Overdose - Discharge Medications *Discharge Medications: Continue LORazepam [Lorazepam] 1 mg PO TID PRN PRN Reason: Anxiety - Discharge Packet/Instructions *Diet: Regular diet *Activity: As tolerated *Pain Management/Treatment: Tylenol OTC 500 milligram every 6 hours as needed. *Wound Care: Not applicable *Expected Signs/Symptoms: Continued symptomatic improvement. *Notify Physician if: Fever, chills, increased shortness of breath, intractable nausea, vomiting, abdominal pain, chest pain, palpitations, dizziness, blurred vision, diarrhea, fatigue, weakness, flank pain, dysuria, black tarry stools, bright red blood per rectum or any other concerning findings. *During Business Hours Contact: Your PCP of choice *After Business Hours Contact: Call [facility] at [phone] and ask that the on-call physician be paged *Pending Lab/Results: No Pending Lab - Referrals/Follow Up *Referrals/Follow Up: [facility] [Primary Care Provider] - - Patient Handouts - Dismissal Complete Discharge Instructions are:: Complete Physician Narrative - Narrative Attestation Narrative: Date: 11/20/17 Time: 4315
[2017-11-20 11:51] VITALS: PULSE 101; RESP 37
== END 2017-11-20 13:20 | disposition home or self-care (01) ==
LOC: ED 10:47 → EDHOLD 10:47 → CCU 12:50
PROVIDERS: ADMIT Internal Medicine; ATTEND Internal Medicine